=== PATIENT | female | born 2000 | race Caucasian/White ===

== ENCOUNTER 2024-11-18 11:30 | Inpatient (IN) | payer MEDICAID, SELFPAY ==
[2024-11-18] VITALS (15 sets, daily range): BP systolic 130–151; BP diastolic 76–97; PULSE 55–80; RESP 16; TEMP 36.2–37.2; O2SAT 98–100; BMI 33.8
[2024-11-18 10:50] LABS: Hematocrit 34.2 % (37-47); Hemoglobin 11.0 g/dL (12.0-15.0); Mean Corp Hgb Conc 32.2 g/dL (32-36); Mean Corpuscular Volume 84.2 fL (81-99); Mean Platelet Vol. 12.1 fl (6.2-12.0); Platelet Count 209 K/mm3 (150-450); RBC Distribution Width CV 13.6 % (11.6-14.6); RBC Distribution Width SD 41.8 fl (35.1-43.9); Red Blood Count 4.06 M/mm3 (4.2-5.4); White Blood Count 12.1 K/mm3 (4.4-11.0)
[2024-11-18 11:34] LABS: Mucous, Urine 0 SEEN /hpf (<or=2+)
[2024-11-18 11:36] LABS: Color, Urine Yellow (Yellow); Glucose, Dipstick Normal (Normal); Ketone-Dipstick Negative (Negative); Leukocyte Esterase-Dipstick 25 /ul (Negative); Nitrite-Dipstick Negative (Negative); Occult Blood-Urine 10 /ul (Negative); Protein-Dipstick 100 mg/dl (Negative); Specific Gravity, Urine 1.015 (1.002-1.030); Urine Bilirubin Dipstick Negative (Negative)
[2024-11-18 11:41] LABS: AST(SGOT) 49 U/L (<=31); Alanine Aminotransfer ALT/SGPT 38 U/L (<=34); Estimated Creatinine Clearance 159.44 ml/min (50-250)
[2024-11-18 11:44] LABS: Red Blood Cells-Urine 0-5 SEEN /hpf (0-5); Squamous Epithelial Cells - UA 10-25 SEEN /hpf (5-10)
[2024-11-18 11:59] LABS: Creatinine, Urine (random) 178.00 mg/dL (28.00-217.00); Protein, Urine (Random) 145.0 mg/dL (0.0-12.0); Protein:Creat Ratio 815 mg/g CRE (0-200)
[2024-11-18] MEDS: Lactated Ringers 1,000 ML 50 ML IV (13:00)
[2024-11-18 13:19] LABS: Uric Acid 5.1 mg/dL (2.6-6.0)
[2024-11-18 14:09] LABS: Syphilis Antibodies Nonreactive (Nonreactive)
[2024-11-18] MEDS: 0.9% Saline Lock 10 ML Syringe IV ×2 (19:53→20:57)
[2024-11-19] VITALS (62 sets, daily range): BP systolic 127–164; BP diastolic 62–99; PULSE 61–106; RESP 14–24; TEMP 36.6–37.8; O2SAT 90–100
[2024-11-19] MEDS: 0.9% Saline Lock 10 ML Syringe IV ×2 (05:42→20:23)
[2024-11-19] MEDS: fentaNYL 100 MCG/2 ML Ampul IV (08:13)
[2024-11-19] MEDS: 0.9% Normal Saline Single 100 ML IV.SOLN. INTRA-UTER (08:15)
[2024-11-19] MEDS: Lactated Ringers 1,000 ML 200 ML IV (11:40)
[2024-11-19] MEDS: fentaNYL-bupivacaine (epidural) 100 ML BAG EPIDURAL ×2 (11:40→15:49)
[2024-11-19] MEDS: Oxytocin 15 Units/NS 250ml 15 UNITS/250 ML IV.SOLN 2 UNITS IV (12:57)
[2024-11-19] MEDS: Lidocaine 1% (20 ml mdv) 20 ML Vial INFILT (16:20)
--- NOTE | 2024-11-19 16:44 | OB.VAGDELI_ITS ---
Assessment & Plan (1) 37 weeks gestation of : (2) Gestational hypertension: (3) High-risk in third trimester: (4) (spontaneous vaginal delivery): (5) First degree perineal laceration: Maternal Data Information Final ROSETTE: 12/09/24 Gestational age: 37 1/7 Vaginal Delivery Maternal Presentation Maternal Presentation: Medically Indicated Induction Type of Induction: Pitocin, Valdez Bulb, Amniotomy and Cytotec Medical Reason for Induction: Gestational Hypertension and Other Vaginal Delivery Information Procedure Performed: Spontaneous Vaginal Delivery Surgeon/Practitioner: Fernanda Marin Date of Procedure: 11/19/24 Pre-Procedure Diagnosis: labor Post-Procedure Diagnosis: same Type of anesthesia: Local with 1% Lidocaine (15 cc) Estimated Blood Loss: 200 Time of Delivery: 16:14 Findings Description of procedure: A vigorous female infant was delivered KEVIN over a first-degree perineal laceration. A loose nuchal cord ?1 was easily reduced. The remainder the infant was delivered with maternal pushing and gentle traction only in less than 15 seconds. The Pitocin infusion was initiated for active management of the third stage. The cord was clamped and cut after cord pulsations ceased. The infant was attended to by the waiting nursing staff. The placenta was delivered spontaneously and intact. The cervix and vagina were intact. The first-degree perineal laceration was infiltrated with 1% lidocaine solution and oversewn with 3-0 Vicryl suture in a running fashion after verbal consent to obtain hemostasis. Sponge and needle counts were correct. A vaginal sweep was completed by me. Procedure findings: vigorous femal Presentation: KEVIN Amniotic Membrane Rupture Type: Artificial Amniotic Fluid Description: Clear Placental Delivery Description: Spontaneous Placenta Disposition: [facility] Specimen collected: No Cord Vessel Description: 3 Vessels Cord Entanglement: Around neck x 1, loose Nuchal Cord Compression: Without compression Infant A Gender: Female (Rebecca) (1 minute): 8 (5 minute): 9 Delayed Cord Clamping: Yes Transmitter Engineer In Charge identification officer: No Post Vaginal Deli Medications given after delivery: IV Pitocin Episiotomy Description: None Laceration: 1st degree Complication Complications: No
--- NOTE | 2024-11-19 16:51 | PCM.HP.OB ---
HPI - General General Date of Admission: 11/18/24 Date of Service: 11/19/24 Chief Complaint: elevated BP HPI Narrative AMBER LOCKWOOD, is a 24 F who presents from office on 11/18 for elevated BP. Found to have gest HTN and recommended induction by Dr. Red and patient agreed. Maternal Data Information Final ROSETTE: 12/09/24 Gestational age: 37 0/7 on 11/18 [facility] Medical History (Updated 11/19/24 @ 16:[address] Fernanda Marin MD) Asthma Superficial varicosities Depression Anxiety Pre-eclampsia Gestational diabetes Home Medications ?Medication ?Instructions ?Recorded ?Last Taken ?Type insulin glargine 100 unit/mL 4 unit subcut QPM 11/18/24 11/17/24 21:00 History subcutaneous solution (Lantus 4 units U-100 Insulin) vit no.95-ferrous 1 tab PO DAILY 11/18/24 11/17/24 09:00 History fumarate 28 mg-folic acid 800 mcg 1 TAB tablet () Allergy/AdvReac Type Severity Reaction Status Date / Time No Known Allergies Allergy Verified 11/18/24 13:07 Social History Smoking Status: Never smoker History Elective abortions Hx Para 0 Spontaneous abortions Hx # Term Pregnancies Ectopic pregnancies Hx # Pregnancies Multiple births # of living children ROS Constitutional Constitutional: Denies fatigue, fever(s) or malaise Eyes Eyes: Denies change in vision ENT HEENT: Denies dizziness or headache(s) Cardiovascular Cardiovascular: Denies chest pain, dyspnea or lightheadedness Respiratory/Chest Respiratory/Chest: Denies cough or dyspnea Gastrointestinal Gastrointestinal: Denies change in bowel habits Genitourinary Genitourinary: Denies burning urination or genital lesions Integumentary Integumentary: Denies rash Neurologic Neurologic: Denies confusion, dizziness, headache(s), numbness or weakness Vital Signs Vital Signs Vital Signs: 11/18/24 17:40 11/18/24 17:40 11/18/24 17:40 Temperature Temperature Source Temporal Pulse Rate 75 Respiratory Rate Blood Pressure 134/76 H BP Systolic 134 BP Diastolic 76 Pulse Ox 11/18/24 17:40 11/18/24 17:40 11/18/24 17:40 Temperature 97.5 F L Temperature Source Pulse Rate Respiratory Rate 16 Blood Pressure BP Systolic BP Diastolic Pulse Ox 99 11/18/24 21:25 11/18/24 21:25 11/18/24 21:26 Temperature Temperature Source Temporal Pulse Rate 68 Respiratory Rate Blood Pressure 130/76 H BP Systolic 130 BP Diastolic 76 Pulse Ox 11/18/24 21:26 11/18/24 21:26 11/19/24 01:26 Temperature 98.9 F Temperature Source Pulse Rate Respiratory Rate 16 18 Blood Pressure BP Systolic BP Diastolic Pulse Ox 11/19/24 01:26 11/19/24 01:27 11/19/24 01:27 Temperature 97.8 F Temperature Source Pulse Rate 75 Respiratory Rate Blood Pressure 127/66 H BP Systolic 127 BP Diastolic 66 Pulse Ox 11/19/24 04:10 11/19/24 04:10 11/19/24 04:11 Temperature Temperature Source Temporal Pulse Rate 83 Respiratory Rate Blood Pressure 155/84 H BP Systolic 155 BP Diastolic 84 Pulse Ox 11/19/24 04:11 11/19/24 04:11 11/19/24 04:11 Temperature 99.8 F H Temperature Source Pulse Rate Respiratory Rate 16 Blood Pressure BP Systolic BP Diastolic Pulse Ox 98 11/19/24 06:32 11/19/24 06:32 11/19/24 09:13 Temperature Temperature Source Pulse Rate 81 Respiratory Rate Blood Pressure 140/88 H 141/79 H BP Systolic 140 141 BP Diastolic 88 79 Pulse Ox 11/19/24 09:13 11/19/24 09:13 11/19/24 09:13 Temperature Temperature Source Tympanic Pulse Rate 74 Respiratory Rate 17 Blood Pressure BP Systolic BP Diastolic Pulse Ox 11/19/24 09:13 11/19/24 11:01 11/19/24 11:01 Temperature 98.6 F Temperature Source Pulse Rate 74 Respiratory Rate Blood Pressure BP Systolic BP Diastolic Pulse Ox 99 11/19/24 11:01 11/19/24 11:01 11/19/24 11:06 Temperature Temperature Source Pulse Rate 65 77 Respiratory Rate Blood Pressure 139/65 H BP Systolic 139 BP Diastolic 65 Pulse Ox 11/19/24 11:06 11/19/24 11:11 11/19/24 11:11 Temperature Temperature Source Pulse Rate 76 Respiratory Rate Blood Pressure BP Systolic BP Diastolic Pulse Ox 100 100 11/19/24 11:12 11/19/24 11:12 11/19/24 11:12 Temperature Temperature Source Pulse Rate 61 Respiratory Rate 24 H Blood Pressure 137/63 H BP Systolic 137 BP Diastolic 63 Pulse Ox 11/19/24 11:13 11/19/24 11:13 11/19/24 11:16 Temperature Temperature Source Pulse Rate 65 86 Respiratory Rate Blood Pressure 134/62 H BP Systolic 134 BP Diastolic 62 Pulse Ox 11/19/24 11:16 11/19/24 11:16 11/19/24 11:16 Temperature Temperature Source Pulse Rate 76 Respiratory Rate Blood Pressure 135/63 H BP Systolic 135 BP Diastolic 63 Pulse Ox 99 11/19/24 11:21 11/19/24 11:21 11/19/24 11:22 Temperature Temperature Source Pulse Rate 94 Respiratory Rate Blood Pressure 136/77 H BP Systolic 136 BP Diastolic 77 Pulse Ox 100 11/19/24 11:22 11/19/24 11:22 11/19/24 11:26 Temperature Temperature Source Pulse Rate 68 77 Respiratory Rate 18 Blood Pressure BP Systolic BP Diastolic Pulse Ox 11/19/24 11:26 11/19/24 11:27 11/19/24 11:27 Temperature Temperature Source Pulse Rate 81 Respiratory Rate Blood Pressure 145/99 H BP Systolic 145 BP Diastolic 99 Pulse Ox 98 11/19/24 11:31 11/19/24 11:31 11/19/24 11:32 Temperature Temperature Source Pulse Rate 84 Respiratory Rate Blood Pressure 151/89 H BP Systolic 151 BP Diastolic 89 Pulse Ox 100 11/19/24 11:32 11/19/24 11:32 11/19/24 11:36 Temperature Temperature Source Pulse Rate 84 82 Respiratory Rate 18 Blood Pressure BP Systolic BP Diastolic Pulse Ox 11/19/24 11:36 11/19/24 11:36 11/19/24 11:36 Temperature Temperature Source Pulse Rate 82 Respiratory Rate Blood Pressure 144/83 H BP Systolic 144 BP Diastolic 83 Pulse Ox 100 11/19/24 11:41 11/19/24 11:41 11/19/24 11:42 Temperature Temperature Source Pulse Rate 85 Respiratory Rate Blood Pressure 135/84 H BP Systolic 135 BP Diastolic 84 Pulse Ox 99 11/19/24 11:42 11/19/24 11:42 11/19/24 11:46 Temperature Temperature Source Pulse Rate 83 92 Respiratory Rate 14 Blood Pressure BP Systolic BP Diastolic Pulse Ox 11/19/24 11:46 11/19/24 11:46 11/19/24 11:46 Temperature Temperature Source Pulse Rate 81 Respiratory Rate Blood Pressure 143/84 H BP Systolic 143 BP Diastolic 84 Pulse Ox 97 11/19/24 11:50 11/19/24 11:50 11/19/24 11:51 Temperature Temperature Source Pulse Rate 79 Respiratory Rate Blood Pressure 131/78 H BP Systolic 131 BP Diastolic 78 Pulse Ox 99 11/19/24 11:51 11/19/24 11:56 11/19/24 11:56 Temperature Temperature Source Pulse Rate 72 82 Respiratory Rate Blood Pressure BP Systolic BP Diastolic Pulse Ox 100 11/19/24 11:56 11/19/24 11:56 11/19/24 12:01 Temperature Temperature Source Pulse Rate 81 91 Respiratory Rate Blood Pressure 135/75 H BP Systolic 135 BP Diastolic 75 Pulse Ox 11/19/24 12:01 11/19/24 12:03 11/19/24 12:03 Temperature Temperature Source Pulse Rate 96 Respiratory Rate Blood Pressure 140/67 H BP Systolic 140 BP Diastolic 67 Pulse Ox 97 11/19/24 12:06 11/19/24 12:06 11/19/24 12:09 Temperature Temperature Source Pulse Rate 88 83 Respiratory Rate Blood Pressure BP Systolic BP Diastolic Pulse Ox 96 11/19/24 12:09 11/19/24 12:11 11/19/24 12:11 Temperature Temperature Source Pulse Rate 93 Respiratory Rate Blood Pressure BP Systolic BP Diastolic Pulse Ox 91 95 11/19/24 13:06 11/19/24 13:06 11/19/24 13:10 Temperature Temperature Source Pulse Rate 82 80 Respiratory Rate Blood Pressure BP Systolic BP Diastolic Pulse Ox 98 11/19/24 13:10 11/19/24 13:16 11/19/24 13:16 Temperature Temperature Source Pulse Rate 83 Respiratory Rate Blood Pressure BP Systolic BP Diastolic Pulse Ox 97 97 11/19/24 13:21 11/19/24 13:21 11/19/24 13:26 Temperature Temperature Source Pulse Rate 78 81 Respiratory Rate Blood Pressure BP Systolic BP Diastolic Pulse Ox 98 11/19/24 13:26 11/19/24 13:30 11/19/24 13:30 Temperature Temperature Source Pulse Rate 81 Respiratory Rate Blood Pressure BP Systolic BP Diastolic Pulse Ox 98 98 11/19/24 13:36 11/19/24 13:36 11/19/24 13:41 Temperature Temperature Source Pulse Rate 86 89 Respiratory Rate Blood Pressure BP Systolic BP Diastolic Pulse Ox 100 11/19/24 13:41 11/19/24 13:46 11/19/24 13:46 Temperature Temperature Source Pulse Rate 80 Respiratory Rate Blood Pressure BP Systolic BP Diastolic Pulse Ox 98 99 11/19/24 13:49 11/19/24 13:49 11/19/24 13:49 Temperature Temperature Source Pulse Rate 80 Respiratory Rate 17 Blood Pressure 135/74 H BP Systolic 135 BP Diastolic 74 Pulse Ox 11/19/24 13:49 11/19/24 13:51 11/19/24 13:51 Temperature 99.1 F Temperature Source Pulse Rate 82 Respiratory Rate Blood Pressure BP Systolic BP Diastolic Pulse Ox 98 11/19/24 13:53 11/19/24 13:53 11/19/24 13:56 Temperature Temperature Source Pulse Rate 84 93 Respiratory Rate Blood Pressure BP Systolic BP Diastolic Pulse Ox 90 11/19/24 13:56 11/19/24 14:53 11/19/24 14:53 Temperature 100.0 F H Temperature Source Pulse Rate Respiratory Rate 18 Blood Pressure BP Systolic BP Diastolic Pulse Ox 96 11/19/24 14:56 11/19/24 14:56 11/19/24 16:24 Temperature Temperature Source Pulse Rate 105 H Respiratory Rate Blood Pressure 140/80 H 163/81 H BP Systolic 140 163 BP Diastolic 80 81 Pulse Ox 11/19/24 16:24 11/19/24 16:39 11/19/24 16:39 Temperature Temperature Source Pulse Rate 106 H 106 H Respiratory Rate Blood Pressure 145/74 H BP Systolic 145 BP Diastolic 74 Pulse Ox Weight Weight: 92.2 kg Body Mass Index (BMI) 33.8 Physical Exam Const alert and no apparent distress General Appearance: cooperative HEENT normocephalic Resp normal respiratory effort Cardio regular rate GI soft to palpation GI Narrative: gravid, nontender, appropriate for gestational age Extremity no calf tenderness General Extremity: edema Skin no wounds Rashes: No rashes noted Psych activity/motor behavior normal Labs Labs Labs: Blood Type A POSITIVE Antibody Screen NEGATIVE Hct 34.2 % (37-47) L Hgb 11.0 g/dL (12.0-15.0) L Syphilis Total Ab Nonreactive (Nonreactive) Assessment & Plan (1) High-risk in third trimester: (2) Gestational hypertension: (3) 37 weeks gestation of : PLAN: (4) Gestational diabetes requiring insulin: PLAN: Plan Risk-benefit and alternatives to induction of labor were discussed with the patient with Dr. Red and consent was signed. She desired to proceed. She received Cytotec for cervical ripening. Pitocin, artificial rupture membranes and Valdez catheter for cervical ripening as needed and as indicated. Estimated weight is less than 4500 g and pelvis is clinically adequate to expect vaginal delivery. May have routine pain control measures during labor. Will monitor blood pressures closely. No evidence of severe preeclampsia at this time but will continue to monitor. Monitor blood sugars closely. Photogrammetric Technician aware of admission.
[2024-11-19] MEDS: Oxytocin 15 Units/NS 250ml 15 UNITS/250 ML IV.SOLN 83 UNITS IV (17:00)
[2024-11-19] MEDS: Ketorolac 30 MG/ML Syringe IV (18:58)
[2024-11-20] VITALS (14 sets, daily range): BP systolic 131–159; BP diastolic 69–93; PULSE 70–92; RESP 16; TEMP 36.4–37.3; O2SAT 95–98
[2024-11-20 06:23] LABS: Hematocrit 30.6 % (37-47); Hemoglobin 9.9 g/dL (12.0-15.0); Immature Granulocytes Count 0.160 X10^3/uL (0.0-0.0); Mean Corp Hgb Conc 32.4 g/dL (32-36); Mean Corpuscular Volume 84.8 fL (81-99); Mean Platelet Vol. 12.2 fl (6.2-12.0); NRBC Flagged by Analyzer 0 % (0-5); POSITIVE DIFFERENTIAL YES; Platelet Count 161 K/mm3 (150-450); RBC Distribution Width CV 13.9 % (11.6-14.6); RBC Distribution Width SD 42.6 fl (35.1-43.9); Red Blood Count 3.61 M/mm3 (4.2-5.4); White Blood Count 17.8 K/mm3 (4.4-11.0)
[2024-11-20 06:24] LABS: Differential Indicated SCAN CRITERIA MET
[2024-11-20 06:50] LABS: Differential Comment SCANNED
[2024-11-20] MEDS: Senna/Docusate Sodium 1 Tablet PO (12:27)
--- NOTE | 2024-11-20 12:54 | PN.OBGYN_ITS ---
Subjective Subjective Doing well per patient and nursing staff. Ambulating and taking PO without difficulty. Voiding and passing flatus. Pain controlled. , services for assistance. Denies headache, visual changes, chest pain, shortness of breath, leg pain or increased bleeding. Lochia normal. Objective Data Objective Data Vital Signs: Vital Signs Temp Pulse Resp BP Pulse Ox O2 Del Method 98.1 F 71 16 131/74 H 98 Room Air 11/20/24 12:21 11/20/24 12:21 11/20/24 12:21 11/20/24 12:21 11/20/24 10:00 11/20/24 10:00 Oxygen Delivery Method Room Air Weight: 203 lb 4.259 oz Body Mass Index (BMI) 33.8 Intake & Output: Intake and Output for Last 24 Hours 11/18/24 11/19/24 11/20/24 23:59 23:59 23:59 Intake Total 317.18 / 317.18 2182.82 / 2182.82 Output Total 500 / 500 400 / 400 Balance 317.18 / 317.18 1682.82 / 1682.82 -400 / -400 Lab / Micro Data 11/20/24 06:12 11/18/24 10:30 Labs: Laboratory Results - last 24 hr 11/19/24 13:51: POC Glucose 72 L 11/19/24 15:03: POC Glucose 81 11/19/24 17:50: POC Glucose 97 11/20/24 06:12: WBC 17.8 H, RBC 3.61 L, Hgb 9.9 L, Hct 30.6 L, MCV 84.8, MCH 27.4, MCHC 32.4, RDW Std Deviation 42.6, RDW Coeff of Cinthya 13.9, Plt Count 161, M PV 12.2 H, Immature Gran % (Auto) 0.900, Neut % (Auto) 71.7 H, Lymph % (Auto) 17.5 L, Lee % (Auto) 9.0, Eos % (Auto) 0.6, Baso % (Auto) 0.3, Absolute Neuts (auto) 12.7 H, Absolute Lymphs (auto) 3.11, Nucleated RBC % 0, Differential Comment SCANNED 11/20/24 08:54: POC Glucose 76 ROS Constitutional Constitutional: Reports systems reviewed and no addt'l complaints, except as documented; Denies headache(s) Eyes Eyes: Denies acute decrease in peripheral vision, blurry vision or change in vision ENT HEENT: Reports systems reviewed and no addt'l complaints, except as documented Cardiovascular Cardiovascular: Denies chest pain or dizziness Respiratory/Chest Respiratory/Chest: Denies cough, dyspnea, dyspnea on exertion, shortness of breath at rest or shortness of breath with exertion Gastrointestinal Gastrointestinal: Denies abdominal pain, diarrhea, nausea or vomiting Genitourinary Genitourinary: Denies abdominal discomfort Musculoskeletal Musculoskeletal: Denies limited range of motion Integumentary Integumentary: Reports systems reviewed and no addt'l complaints, except as documented Neurologic Neurologic: Reports systems reviewed and no addt'l complaints, except as documented Psychiatric Psychiatric: Reports systems reviewed and no addt'l complaints, except as documented Endocrine Endocrinology: Reports systems reviewed and no addt'l complaints, except as documented Hematologic/Lymphatic Hematologic/Lymphatic: Reports systems reviewed and no addt'l complaints, except as documented Allergic/Immunologic Allergic/Immunologic: Reports systems reviewed and no addt'l complaints, except as documented Physical Exam Const alert and oriented x3 General Appearance: cooperative Orientation / Consciousness: awake, oriented to person, oriented to place and oriented to time Exam Limitations: no limitations HEENT normocephalic Head and Scalp: normal to inspection, normocephalic and atraumatic Face and Sinus: normal facial exam Eyes General Eye: normal appearance of both eyes Neck full ROM Chest Chest: symmetrical chest wall rise Resp normal respiratory effort and normal air movement Auscultation: clear to auscultation bilaterally Cardio regular rate, regular rhythm, S1 normal heart sound, S2 normal heart sound, no murmurs, no rub, no gallops and no clicks GI normal to inspection, nondistended, normoactive bowel sounds and non-tender appearance of the vagina normal Bladder / Kidney Exam: no CVA tenderness Back/Spine normal ROM Extremity normal to inspection and full ROM Skin no rashes or lesions noted Neuro oriented x3, CN's II-XII intact bilaterally and moves all extremities Sensorium / Orientation: awake, alert and oriented to person Motor Exam: clonus absent Deep Tendon Reflexes: Rt Patellar (L4): 2+ and Lt Patellar (L4): 2+ Assessment & Plan (1) (spontaneous vaginal delivery): (2) Gestational hypertension: (3) Lactating mother: PLAN: Plan 1) Routine PPD#1 2) Vitals stable, BP mildly elevated, taking Labetalol 300mg q8h 3) I&O 4) Pain management 5) services PRN 6) Planning D/C home tomorrow, recommend 72hr but patient likely will request tomorrow
[2024-11-21 02:02] VITALS: BP 143/92; PULSE 72; RESP 16; TEMP 36.6; O2SAT 96
[2024-11-21 08:30] VITALS: BP 142/98; PULSE 80; RESP 16; TEMP 36.5; O2SAT 98
[2024-11-21 08:45] VITALS: BP 139/85
--- NOTE | 2024-11-21 12:35 | PCM.PN.OB ---
Subjective Subjective Doing well per patient and nursing staff. Ambulating and taking PO without difficulty. Voiding and passing flatus. Pain controlled. , services for assistance. Denies headache, visual changes, chest pain, shortness of breath, leg pain or increased bleeding. Lochia normal. Objective Data Objective Data Vital Signs: Vital Signs Temp Pulse Resp BP Pulse Ox O2 Del Method 97.7 F L 80 16 139/85 H 98 Room Air 11/21/24 08:30 11/21/24 08:30 11/21/24 08:30 11/21/24 08:45 11/21/24 08:30 11/21/24 08:30 Oxygen Delivery Method Room Air Weight: 203 lb 4.259 oz Body Mass Index (BMI) 33.8 Intake & Output: Intake and Output for Last 24 Hours 11/19/24 11/20/24 11/21/24 23:59 23:59 23:59 Intake Total 2182.82 / 2182.82 Output Total 500 / 500 400 / 400 Balance 1682.82 / 1682.82 -400 / -400 Lab / Micro Data 11/20/24 06:12 11/18/24 10:30 ROS Constitutional Constitutional: Reports systems reviewed and no addt'l complaints, except as documented; Denies headache(s) Eyes Eyes: Denies acute decrease in peripheral vision, blurry vision or change in vision ENT HEENT: Reports systems reviewed and no addt'l complaints, except as documented Cardiovascular Cardiovascular: Denies chest pain or dizziness Respiratory/Chest Respiratory/Chest: Denies cough, dyspnea, dyspnea on exertion, shortness of breath at rest or shortness of breath with exertion Gastrointestinal Gastrointestinal: Denies abdominal pain, diarrhea, nausea or vomiting Genitourinary Genitourinary: Denies abdominal discomfort Musculoskeletal Musculoskeletal: Denies limited range of motion Integumentary Integumentary: Reports systems reviewed and no addt'l complaints, except as documented Neurologic Neurologic: Reports systems reviewed and no addt'l complaints, except as documented Psychiatric Psychiatric: Reports systems reviewed and no addt'l complaints, except as documented Endocrine Endocrinology: Reports systems reviewed and no addt'l complaints, except as documented Hematologic/Lymphatic Hematologic/Lymphatic: Reports systems reviewed and no addt'l complaints, except as documented Allergic/Immunologic Allergic/Immunologic: Reports systems reviewed and no addt'l complaints, except as documented Physical Exam Const alert and oriented x3 General Appearance: cooperative Orientation / Consciousness: awake, oriented to person, oriented to place and oriented to time Exam Limitations: no limitations HEENT normocephalic Head and Scalp: normal to inspection, normocephalic and atraumatic Face and Sinus: normal facial exam Eyes General Eye: normal appearance of both eyes Neck full ROM Chest Chest: symmetrical chest wall rise Resp normal respiratory effort and normal air movement Auscultation: clear to auscultation bilaterally Cardio regular rate, regular rhythm, S1 normal heart sound, S2 normal heart sound, no murmurs, no rub, no gallops and no clicks GI normal to inspection, nondistended, normoactive bowel sounds and non-tender GI Narrative: Fundus firm 2 below U appearance of the vagina normal Narrative: Normal lochia rubra Bladder / Kidney Exam: no CVA tenderness Back/Spine normal ROM Extremity normal to inspection and full ROM Skin no rashes or lesions noted Neuro oriented x3, CN's II-XII intact bilaterally and moves all extremities Sensorium / Orientation: awake, alert and oriented to person Motor Exam: clonus absent Deep Tendon Reflexes: Rt Patellar (L4): 2+ and Lt Patellar (L4): 2+ Assessment & Plan (1) Lactating mother: (2) Gestational diabetes requiring insulin: (3) First degree perineal laceration: (4) (spontaneous vaginal delivery): (5) Gestational hypertension: PLAN: Plan 1) Routine PPD#2NSVD 2) Vitals stable, continue Labetalol 200mg PO TID 3) I&O 4) Pain management 5) services PRN 6) Planning D/C home tomorrow due to GHTN and assistance
[2024-11-21 14:00] VITALS: BP 134/77; PULSE 83; RESP 16; TEMP 36.7; O2SAT 97
--- NOTE | 2024-11-21 15:55 | CASEMGMT ---
Social Work Assessment Labor and Delivery Unit Patient Address: [address] [place] [address]. [place] [address] Phone number: [phone] Date of Referral: 11/20/24 Time of Referral: 12:58 Referred By: Fernanda Marin Date of Intervention: 11/21/2024 Time of Intervention: 15:55 Reason for Referral: Mental Health/History of anxiety and depression. ? History obtained from: Medical records and mother of baby (MOB). ? Household composition: MOB, Father of baby (FOB; Rigoberto Turcios, age 28) and their daughter Rebecca Turcios, born on 11/19/24. Patient's parent/guardian status:? MOB and FOB are not but have been dating for 3 years. ? Medical History: : 1, Para, now 1. MOB received care beginning close to 10 or 11 weeks per MOB at [facility] in [place], [place]. ?MOB then moved from [place] to [place] and most recently moved to [place]. Transfer of care to [facility] occurred at 32 weeks and it looks like 4 days. Visits from the [facility] appeared to be routine. Apgars: 8 and 9. Weight: 6lbs, 9oz. Helicopter Specialist: Dr. Mee Bartlett in [place] however the MOB reported she may see if she can find someone closer with reviews as good as Dr. Bartlett?s. Educational Status: MOB denied any issues or concerns with reading or writing. MOB attended ?some college and the FOB graduated from high school. Financial Status: MOB reported the household income is sufficient to meet the needs of her family at this time. MOB is going to be a [id number]-mom (SAHM) and the FOB works full-time on the railroad. The FOB is currently on FMLA so that he can spend some extra time with the MOB and and provide support. Infant Supplies: MOB reported she has all of the supplies she needs for baby at this time including but not limited to: car seat, bassinet, crib, diapers, bottles, diapers and clothing. [facility] is in the process of getting a breast pump for the MOB. Childcare/Caregiver(s): MOB identified herself as the primary caregiver of baby since she is going to be a SAHM and the FOB will assist during the times he is home. Transportation:? MOB reported both she and the FOB are both licensed drivers with reliable vehicles to take baby to and from all medical appointments. No transportation issues identified. Programs/Agencies Involved: ROBERT has Medicaid through [employer] and also has WIC. MOB used to previously be involved in counseling through [employer] in [place]. ??? Children Services/Legal Issues:? Denied. Behavioral Health Issues: ??Mental Health History: ROBERT has a history of anxiety and depression and used to be on medication however stopped taking her medication as soon as she found out she was . MOB reported she has felt ?great? mental health leo throughout her and stated that unless her symptoms return, she is going to see if she is able to remain off of her medication for now since she is breast feeding.? MOB has plans to discuss with her doctor. MOB denied any mental health issues with the FOB. ? Substance Use History: MOB denied any substance abuse history either with herself or with the FOB. ??? Family History: MOB stated she is not aware of any diagnosed mental health issues on her side of the family however suspects possible mental health with her parents. ROBERT reported the FOB has an extremely large family and is not knowledgeable of mental health backgrounds on newborns paternal side of the family. ? Drug Screens: None obtained for the MOB or baby during this admission. ? Family/Social Stressors: MOB denied any current family/social stressors. Support Systems: Ample. ROBERT described her biggest supports as the FOB, her mother, ROBERT?s maternal grandmother who resides in [place] and who has already planned a two week trip to stay and help with the MOB and , and the MOB?s mother and MOB?s paternal grandfather. MOB stated she has a relationship with her father, however described her father as someone who ?doesn?t know how to be supportive? and not someone she would turn to if she ever needed help. MOB reported the FOB has ?an extremely large family? that MOB gets overwhelmed with. MOB stated she and the FOB have not told anyone on ?s paternal side of the family that she has delivered and plans on waiting a few weeks so she can get home and settled in first. ROBERT also stated she has a best friend who is a big support. ?? Depression/Shaken Baby/Safe Sleeping: cemetery worker provided verbal and written education on PPD, increased risk factors, Safe Sleeping and Shaken Baby.? MOB verbalized an understanding. Shrimp Packer administered the [place] depression scale. MOB?s score was a 7. Shrimp Packer provided education which the MOB verbalized she understood. ? ?ASSESSMENT:? MOB provided consent to social work visit. When medical social consultant arrived, MOB had just finished attempting to breastfeed and had started to pump. was sleeping in the crib next to the MOB. The FOB was at home getting showered and checking on the dogs. MOB was verbally engaged and cooperative.? MOB was extremely talkative and talked a lot throughout the assessment about doing a lot of research for one thing or another, all that had to do with best products/services/providers for .? MOB ?lit up? when taking about and appeared to be very excited and knowledgeable. MOB described a positive relationship with the FOB, and denied any current or history of domestic violence. Safe Plan of Care for related to substance use: N/A; not needed. ? PLAN:? Baby to be discharged home.? cemetery worker also provided written information on depression, depression resources and Help Me Grow. ?No other services requested or indicated. Sussy Bear, ACCOUNTS RECEIVABLE EXECUTIVE, ACCOUNTING REPRESENTATIVE
[2024-11-21] MEDS: MEASLES,MUMPS,RUBELLA VACC/PF 0.5 ML SC (17:36)
[2024-11-21 20:22] VITALS: BP 144/93; PULSE 77; RESP 16; TEMP 36.7; O2SAT 98
[2024-11-22] VITALS (8 sets, daily range): BP systolic 145–154; BP diastolic 87–94; PULSE 72–82; RESP 16–20; TEMP 36.2–36.7; O2SAT 97–98
--- NOTE | 2024-11-22 08:53 | PCM.PN.OB ---
Subjective Subjective Doing well. Ambulating and voiding without difficulty. Mild lochia. Breast feeding. Tension headache improved with Flexeril but still present. Increasing labetalol to 300 mg Objective Data Objective Data Vital Signs: Vital Signs Temp Pulse Resp BP Pulse Ox O2 Del Method 97.1 F L 82 16 149/87 H 98 Room Air 11/22/24 02:00 11/22/24 02:00 11/22/24 02:00 11/22/24 03:18 11/22/24 02:00 11/22/24 02:00 Oxygen Delivery Method Room Air Weight: 92.2 kg Body Mass Index (BMI) 33.8 Intake & Output: Intake and Output for Last 24 Hours 11/20/24 11/21/24 11/22/24 23:59 23:59 23:59 Output Total 400 / 400 Balance -400 / -400 Lab / Micro Data 11/20/24 06:12 11/18/24 10:30 ROS Constitutional Constitutional: Denies headache(s) Cardiovascular Cardiovascular: Denies chest pain or dyspnea Gastrointestinal Gastrointestinal: Denies nausea or vomiting Genitourinary Genitourinary: Denies dysuria Physical Exam Const alert, oriented x3 and no apparent distress General Appearance: cooperative and comfortable Eyes PERRL and EOMs intact bilaterally Resp normal respiratory effort GI soft to palpation and non-tender Narrative: Fundus firm, below umbilicus. Uterus Palpation: uterus fundus firm ( below umbilicus) Extremity normal to inspection and full ROM Neuro oriented x3 and CN's II-XII intact bilaterally Psych mental status grossly normal Assessment & Plan (1) Lactating mother: (2) Gestational diabetes requiring insulin: (3) (spontaneous vaginal delivery): (4) Gestational hypertension: QUALIFIERS: Trimester: third trimester Qualified Code(s): O13.3 - Gestational [-induced] hypertension without significant proteinuria, third trimester PLAN: Plan Increase labetalol. Continue Flexeril for muscle tension in shoulder and neck. Possible D/C home
[2024-11-22] MEDS: NIFEdipine 30 MG Tablet PO (18:21)
[2024-11-23] VITALS (9 sets, daily range): BP systolic 131–156; BP diastolic 82–105; PULSE 72–104; RESP 14–20; TEMP 36.3–36.8; O2SAT 96–98
--- NOTE | 2024-11-23 09:03 | PCM.PN.OB ---
Subjective Subjective Doing well. Ambulating and voiding without difficulty. Mild lochia. Breast feeding. Headache improves with flexeril. Back of the neck and shoulders tight and sore. Now on labetalol and Procardia. Objective Data Objective Data Vital Signs: Vital Signs Temp Pulse Resp BP Pulse Ox O2 Del Method 97.3 F L 84 14 142/89 H 97 Room Air 11/23/24 08:00 11/23/24 08:00 11/23/24 08:00 11/23/24 08:00 11/23/24 08:00 11/23/24 08:00 Oxygen Delivery Method Room Air Weight: 92.2 kg Body Mass Index (BMI) 33.8 Lab / Micro Data 11/20/24 06:12 11/18/24 10:30 ROS Constitutional Constitutional: Denies headache(s) Cardiovascular Cardiovascular: Denies chest pain or dyspnea Gastrointestinal Gastrointestinal: Denies nausea or vomiting Genitourinary Genitourinary: Denies dysuria Physical Exam Const alert, oriented x3 and no apparent distress General Appearance: cooperative and comfortable Eyes PERRL and EOMs intact bilaterally Resp normal respiratory effort GI soft to palpation and non-tender Narrative: Fundus firm, below umbilicus. Uterus Palpation: uterus fundus firm ( below umbilicus) Extremity normal to inspection and full ROM Neuro oriented x3 and CN's II-XII intact bilaterally Psych mental status grossly normal Assessment & Plan (1) Gestational diabetes requiring insulin: (2) Gestational hypertension: QUALIFIERS: Trimester: third trimester Qualified Code(s): O13.3 - Gestational [-induced] hypertension without significant proteinuria, third trimester COMMENT: Procardia 30 XL and labetalol 300 mg TID PLAN: HTN improved with addition of procardia (3) (spontaneous vaginal delivery): PLAN: Plan Reviewed HTN precautions. Needs to be seen in Office tomorrow or . Continue Flexeril and neck massage to help headache and neck pain.
--- NOTE | 2024-11-23 09:09 | PCM.DC.SUM ---
Providers Date of Admission: 11/18/24 Date of Discharge: 11/23/24 Primary Care Physician: DEB Hagen Reason For Visit: VAGINALLY Diagnosis Discharge Diagnosis (1) Gestational diabetes requiring insulin: Status: Acute Code(s): O24.414 - Gestational diabetes mellitus in , insulin controlled (2) Gestational hypertension: Status: Acute Code(s): O13.9 - Gestational [-induced] hypertension without significant proteinuria, unspecified trimester Qualifiers: Trimester: third trimester Qualified Code(s): O13.3 - Gestational [-induced] hypertension without significant proteinuria, third trimester Plan: HTN improved with addition of procardia (3) (spontaneous vaginal delivery): Status: Acute Code(s): O80 - Encounter for full-term uncomplicated delivery Plan Reviewed HTN precautions. Needs to be seen in Office tomorrow or . Continue Flexeril and neck massage to help headache and neck pain. Medications at Discharge Home Medications vit no.95-ferrous fumarate 28 mg-folic acid 800 mcg tablet () 1 tab PO DAILY 11/18/24 labetalol 200 mg tablet 300 mg (1.5 x 200 mg) PO Q8H #60 tabs 11/22/24 cyclobenzaprine 5 mg tablet 5 mg PO TID PRN Muscle Spasm #30 tabs 11/23/24 nifedipine 30 mg tablet,extended release 24 hr 30 mg PO DAILY #30 tabs 11/23/24 Hospital Course Operations None Procedures None Summary of Care Provided Minutes Spent on Discharge: 20 Hospital Course: Admitted for induction of labor due to elevated blood pressures. Pr/cr ration 800. without complication. BP managed with labetalol and then Procardia. Headache from muscle tension in neck and shoulders. Improved with muscle relaxers. Physical Exam Const alert and no apparent distress Narrative: Fundus firm, below umbilicus. Weight / BMI Weight Weight: 92.2 kg Body Mass Index (BMI) 33.8 ABG / Lab / Microbiology Data 11/20/24 06:12 11/18/24 10:30 D/C Instructions May resume sexual activity in: 6 weeks DC O2, CPAP, BIPAP Needs Home O2 Discharge instructions: No Please Follow Up With: Fernanda Marin MD When: Follow up with our office in 1-2 and 6 weeks or as needed. [phone] Meaningful Use Info Meaningful Use Meaningful Use Diagnoses (Choose all that apply): None applicable Discharge Plan Admission Admit Date/Time: 11/18/24 11:30 Primary Reason for Your Visit: delivery Attending Provider: Fernanda Marin Primary Care Provider: Luis Gibbs Discharge Orders/Prescriptions Prescriptions: New labetalol 200 mg Tablet 300 mg PO Q8H Qty: 60 1RF nifedipine 30 mg Tablet Extended Release 24hr 30 mg PO DAILY Qty: 30 1RF cyclobenzaprine 5 mg Tablet 5 mg PO TID PRN (Reason: Muscle Spasm) Qty: 30 0RF Continued PNV no.95-ferrous fumarate-FA [] 28 mg iron- 800 mcg tablet 1 tab PO DAILY Discontinued insulin glargine [Lantus U-100 Insulin] 100 unit/mL solution 4 unit subcut QPM Referrals / Follow Up: Luis Gibbs PA [Primary Care Provider] - Disposition Disposition (needs filled in before D/C Order can be placed): Home, Self Care
[2024-11-23] MEDS: NIFEdipine 30 MG Tablet PO ×2 (09:29→12:30)
--- NOTE | 2024-11-23 16:56 | NURSING ---
student charting reviewed by Don RN, instructor
== END 2024-11-23 14:55 | disposition home or self-care (01) | DRG 560 ==
LOC: WPOUT 11:44 → WP 11:44
PROVIDERS: Obstetrics & Gynecology; Admitting Provider Obstetrics & Gynecology; PCP Physician Assistant; Referring Provider Obstetrics & Gynecology; Visit Provider Obstetrics & Gynecology
DX: O14.04 Mild to moderate pre-eclampsia, complicating childbirth (principal); Z37.0 Single live birth; O99.355 Diseases of the nervous system complicating the puerperium; O24.424 Gestational diabetes mellitus in childbirth, insulin controlled; G44.219 Episodic tension-type headache, not intractable; O69.81X0 Labor and delivery complicated by cord around neck, without compression, not applicable or unspecified; O70.0 First degree perineal laceration during delivery; Z3A.37 37 weeks gestation of pregnancy; Z23 Encounter for immunization
CPT/HCPCS: 59025; 59050; 81001; 82565; 82570; 82962; 84156; 84450; 84460; 84550; 85025; 85027; 86780; 86850; 86900; 86901; 99221; A4216; G0378; J2405